=== PATIENT | female | born 1990 | race Caucasian/White ===

== ENCOUNTER 2016-10-24 22:17 | Emergency (ER) | payer OTHER ==
[~2016-10-24 22:17] MED LIST: AZITHROMYCIN 250 MG TAB PO SCH
--- NOTE | 2016-10-24 22:26 | EDPHY ---
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 She is complaining of sinus congestion but no cough. Denies fever. She is here for prophylactic antibiotics. She has no complaints at this time specifically no fever, chest pain, shortness of breath, nausea, vomiting. Otherwise appears well. Past Medical History: No significant medical history Past Surgical History: No significant surgical history Social History: denies daily use drugs alcohol tobacco products Family History: noncontributory ROS REVIEW OF SYSTEMS: A comprehensive 10 point review of systems is otherwise negative aside from elements mentioned in the history of present illness. Exam Constitutional appears well nontoxic triage nursing summary reviewed, vital signs reviewed, awake/alert. Eyes normal conjunctivae and sclera, EOMI, PERRLA. HENT normal inspection, atraumatic, moist mucus membranes, no epistaxis, neck supple/ no meningismus, no raccoon eyes. Respiratory clear to auscultation bilaterally, normal breath sounds, no respiratory distress, no wheezing. Cardiovascular rate normal, regular rhythm, no murmur, no edema, distal pulses normal. Gastrointestinal soft, non-tender, no rebound, no guarding, normal bowel sounds, no distension, no pulsatile mass. Genitourinary no CVA tenderness. Musculoskeletal no midline vertebral tenderness, full range of motion, no calf swelling, no tenderness of extremities, no meningismus, good pulses, neurovascularly intact. Skin pink, warm, & dry, no rash, skin atraumatic. Neurologic awake, alert and oriented x 3, AAOx3, moves all 4 extremities equally, motor intact, sensory intact, CN II-XII intact, normal cerebellar, normal vision, normal speech. Psychiatric normal mood/affect. Heme/Lymph/Immune no lymphadenopathy. Differential Diagnosis: pertussis exposure need for azithromycin antibiotic prophylaxis. Medical Decision Making: Patient appears well nontoxic no acute distress no medical complaints at this time sinus congestion is the only complaint. Patient be given a prescription for azithromycin which will cover pertussis. Source: Patient - Personal History Tetanus Vaccine Date: 2014 - Medical/Surgical History Hx Asthma: No Hx Chronic Respiratory Disease: No Hx Diabetes: No Hx Cardiac Disease: No Hx Renal Disease: No Hx Cirrhosis: No Hx Alcoholism: No Hx HIV/AIDS: No Hx Splenectomy or Spleen Trauma: No Other PMH: medical none. surgery none - Social History Smoking Status: Never smoked Allergies/Adverse Reactions: amoxicillin [Amoxicillin] Allergy (Verified 05/21/13 12:04) Vomiting Home Medications: Medication Instructions Recorded Diazepam [Valium] 5 mg PO TIDPRN PRN #15 tab 10/10/14 Hydrocodone/APAP 5/325 [[place] 1 each PO Q4-6PRN PRN #15 tab 10/10/14 5/325 (*)] Naomi 28 Tablet 10/10/14 AZITHROMYCIN [Z-PACK] 250 mg PO DAILY #6 tab 10/24/16 Departure - Departure Disposition: Home, Routine, Self-Care Clinical Impression: Pertussis exposure Condition: Good Instructions: Pertussis (ED) Additional Instructions: 1. drink lots of fluids stay well-hydrated 2. take her azithromycin antibiotic as prescribed. 3.If you have worsening symptoms return to the emergency room. Referrals: [place], [Primary Care Provider] - As per Instructions [facility] (ED,. [Edm Groups for Call Sched] - As per Instructions Prescriptions: AZITHROMYCIN [Z-PACK] 250 mg PO DAILY #6 tab
[2016-10-24 22:31] VITALS: BP 124/74; PULSE 66; RESP 16; TEMP 98.1; O2SAT 96
== END 2016-10-24 22:32 | disposition home or self-care (01) ==
DX: Z20.818 Contact with and (suspected) exposure to other bacterial communicable diseases (principal)